=== PATIENT | male | born 1995 | race Caucasian/White ===

== ENCOUNTER 2018-07-25 23:46 | Emergency (ER) | payer OTHER ==
--- NOTE | 2018-07-25 23:57 | EDPHY ---
H & P Time Seen by Provider: 07/25/18 23:51 HPI/ROS: Chief Complaint: Agitation after cocaine use HPI: 23-year-old male being brought in by EMS after having an episode of agitation and"freaking out"after using cocaine tonight. Friends thought he had a seizure. Patient states that he has full recollection of events in never lost consciousness. He has had this happen before after using cocaine. EMS gave him IV Versed he is feeling improved. No chest pain. No headache. No nausea or vomiting. Does have a history of alcohol abuse in the past, last alcohol use was 2 weeks ago. He completed a several days of Librium to help him through withdrawals. He has had alcohol withdrawal seizures. She was me has not had any alcohol in the last couple of weeks. No nausea or vomiting. He is now feeling much better. ROS: 10 point Review of Systems is negative except as noted in the HPI. PMH: Depression, substance abuse Social History: No smoking, occasional alcohol, occasional cocaine Family History: non-contributory Physical Exam: Gen: Awake, Alert, No Distress HEENT: Nose: no rhinorrhea Eyes: PERRLA, EOMI Mouth: Moist mucosa Neck: Supple, no JVD Chest: nontender, lungs clear to auscultation Heart: S1, S2 normal, no murmur Abd: Soft, non-tender, no guarding Back: no CVA tenderness, no midline tenderness Ext: no edema, non-tender Skin: no rash Neuro: CN II-XII intact, Sensation grossly intact, Strength 5/5 in bilateral upper and lower extremities Constitutional: Initial Vital Signs Temperature (C) 36.7 C 07/25/18 23:54 Heart Rate 103 H 07/25/18 23:54 Respiratory Rate 16 07/25/18 23:54 Blood Pressure 125/56 H 07/25/18 23:54 O2 Sat (%) 96 07/25/18 23:54 O2 Delivery Mode Room Air Allergies/Adverse Reactions: No Known Allergies Allergy (Unverified 07/25/18 23:56) Home Medications: Medication Instructions Recorded NK [No Known Home Meds] 07/25/18 Medical Decision Making ED Course/Re-evaluation: Patient is awake alert, smiling, interactive, very polite, no complaints at this time. He is stating that he has no desire to use cocaine again. Will discharge with follow-up as an outpatient, return for worsening. Departure - Departure Disposition: Home, Routine, Self-Care Clinical Impression: Cocaine abuse Condition: Good Instructions: Cocaine Abuse (ED) Referrals: NONE *PRIMARY CARE P,. [Primary Care Provider] - As per Instructions
[2018-07-26 01:12] VITALS: BP 122/61
== END 2018-07-26 01:12 | disposition home or self-care (01) ==
DX: F14.10 Cocaine abuse, uncomplicated (principal)